=== PATIENT | male | born 1955 | race Caucasian/White ===

== ENCOUNTER → 2017-04-15 | Outpatient (CLI) | payer BC ==
[~2017-04-15] VITALS: Ht 180.3 cm; Wt 82.7 kg
[~2017-04-15] MED LIST: ADULT LOW DOSE81 MG PO; MASON NATURAL500 MG PO; OMEGA 3-6-9 11200 MG PO; ZESTORETIC 20-1 EACH PO
[2017-04-15 09:26] VITALS: BP 133/75
== END ==
LOC: AMSURD 09:23
DX: Z00.00 Encounter for general adult medical examination without abnormal findings (principal); I10 Essential (primary) hypertension; E78.00 Pure hypercholesterolemia, unspecified; E11.9 Type 2 diabetes mellitus without complications; Z82.49 Family history of ischemic heart disease and other diseases of the circulatory system; K75.9 Inflammatory liver disease, unspecified

== ENCOUNTER → 2017-05-10 | Outpatient (CLI) | payer BC ==
[2017-04-15 09:26] VITALS: BP 133/75
[2017-05-10 10:09] LABS: ALBUMIN 4.4 g/dL (3.5-5.0); BUN/CREATININE RATIO 29.4 (6.0-26.0); CALCIUM 9.6 mg/dL (8.4-10.2); POTASSIUM 3.9 mmol/L (3.6-5.0); TOTAL BILIRUBIN 1.2 mg/dL (0.2-1.3); TOTAL PROTEIN 7.9 g/dL (6.3-8.2)
== END ==
LOC: LAB 09:33
PROVIDERS: Family Medicine
DX: Z00.00 Encounter for general adult medical examination without abnormal findings (principal); I10 Essential (primary) hypertension; E78.00 Pure hypercholesterolemia, unspecified; E11.9 Type 2 diabetes mellitus without complications; K75.9 Inflammatory liver disease, unspecified; Z82.49 Family history of ischemic heart disease and other diseases of the circulatory system

== ENCOUNTER → 2017-08-30 | Outpatient (CLI) | payer BC ==
[2017-04-15 09:26] VITALS: BP 133/75
[2017-08-30 07:45] LABS: DIRECT BILIRUBIN 0.2 mg/dL (0.0-0.4); TOTAL PROTEIN 7.3 g/dL (6.3-8.2)
== END ==
LOC: LAB 07:15
PROVIDERS: Family Medicine
DX: E78.00 Pure hypercholesterolemia, unspecified (principal)

== ENCOUNTER → 2018-08-31 | Outpatient (CLI) | payer OTHER ==
[2017-04-15 09:26] VITALS: BP 133/75
[2018-08-31 09:20] LABS: ALBUMIN 4.3 g/dL (3.5-5.0); CALCIUM 9.6 mg/dL (8.4-10.2); POTASSIUM 3.8 mmol/L (3.6-5.0); TOTAL PROTEIN 7.6 g/dL (6.3-8.2)
== END ==
LOC: LAB 08:25
PROVIDERS: Family Medicine
DX: Z12.5 Encounter for screening for malignant neoplasm of prostate (principal); I10 Essential (primary) hypertension; E11.9 Type 2 diabetes mellitus without complications

== ENCOUNTER → 2020-08-08 | Outpatient (CLI) | payer OTHER ==
[2017-04-15 09:26] VITALS: BP 133/75
[2020-08-08 07:25] LABS: ALBUMIN 4.2 g/dL (3.4-4.8)
[2020-08-08 07:27] LABS: TOTAL PROTEIN 7.3 g/dL (6.2-8.1)
[2020-08-08 07:29] LABS: TOTAL BILIRUBIN 1.3 mg/dL (0.2-1.2)
== END ==
LOC: LAB 07:01
PROVIDERS: Family Medicine
DX: Z12.5 Encounter for screening for malignant neoplasm of prostate (principal); E78.00 Pure hypercholesterolemia, unspecified; I10 Essential (primary) hypertension

== ENCOUNTER → 2021-05-02 | Outpatient (CLI) | payer OTHER | LOC: LAB 11:24 | DX: Z20.822 Contact with and (suspected) exposure to COVID-19 (principal) ==

== ENCOUNTER → 2024-08-03 | Outpatient (CLI) | payer MEDICARE ==
[2024-08-03 12:37] LABS: CALCIUM 10.2 mg/dL (8.3-10.5)
== END ==
LOC: LAB 12:11
PROVIDERS: Family Medicine
DX: Z12.5 Encounter for screening for malignant neoplasm of prostate (principal); E11.9 Type 2 diabetes mellitus without complications; E78.2 Mixed hyperlipidemia

== ENCOUNTER → 2024-09-04 | Day surgery (SDC) | payer MEDICARE ==
[~2024-09-04] MED LIST changes: +Lidocaine PF 2% (20 MG/ML) 5 ML VIAL ONE
== END | disposition home or self-care (01) ==
LOC: MSO 06-19 15:11
DX: Z12.11 Encounter for screening for malignant neoplasm of colon (principal); Z79.82 Long term (current) use of aspirin; G30.9 Alzheimer's disease, unspecified; F02.80 Dementia in other diseases classified elsewhere, unspecified severity, without behavioral disturbance, psychotic disturbance, mood disturbance, and anxiety
CPT/HCPCS: 00812; J2704; J7120